=== PATIENT | female | born 1995 | race Two or more races ===

== ENCOUNTER → 2025-03-14 | Emergency (ER) | payer OTHER ==
[~2025-03-14] VITALS: Ht 160 cm; Wt 65.8 kg
[~2025-03-14] MED LIST: 0.9 % SODIUM CHLORIDE 1,000 ML IV ONE; HYDROCODONE/CHLORPHEN P-STIREX 5 ML ML PO ONE; IPRATROPIUM/ALBUTEROL SULFATE 3 ML AMPUL.NEB IH ONE; IPRATROPIUM/ALBUTEROL SULFATE 3 ML AMPUL.NEB IH SCH; MAGNESIUM SULFATE 1,000 MG in 0.9 % SODIUM CHLORIDE 50 ML IV ONE; MAGNESIUM SULFATE 50% 1,000 MG/2 ML VIAL ONE; METHYLPREDNISOLONE SOD SUCC 125 MG VIAL IV ONE; METHYLPREDNISOLONE SOD SUCC 125 MG VIAL ONE
[2025-03-14 13:04] LABS: BASO % 0.3 % (0.1-1.2); EOS # 0.11 (0.04-0.54); EOS % 1.5 % (0.7-7.0); LYMPH # 2.00 (1.18-3.74); LYMPH % 26.6 % (19.3-53.1); MEAN PLATELET VOLUME 10.50 fl (9.4-12.4); MONO # 0.59 (0.24-0.82); MONO % 7.9 % (4.7-12.5); NEUT # 4.78 (1.56-6.13); NEUT % 63.6 % (34.0-71.1); RED CELL DISTRIBUTION WIDTH 12.3 % (11.6-14.4)
[2025-03-14 13:28] LABS: COVID-19 AG NEGATIVE (NEGATIVE)
[2025-03-14 13:50] LABS: ALT/SGPT 22 U/L (12-78); AST/SGOT 19 U/L (15-37); BILIRUBIN TOTAL 1.60 mg/dL (0.3-1.2); BUN CREA RATIO 13 (7.0-25.0); CREATININE SERUM 0.78 mg/dL (0.55-1.02); GFR 87.94; GLOBULINA 3.5 G/DL (2.4-3.5); GLUCOSE FASTING 96 mg/dL (65-100); OSMOLALITY SERUM 276 MOSM/KG (275-295)
[2025-03-14 13:53] LABS: HCG QUANTITATIVE < 1 mUI/mL (1-3)
== END | disposition left against medical advice (07) ==
LOC: ER 11:36
PROVIDERS: General Practice
DX: J45.902 Unspecified asthma with status asthmaticus (principal); Z20.822 Contact with and (suspected) exposure to COVID-19